=== PATIENT | male | born 1955 | race Caucasian/White ===

== ENCOUNTER 2022-01-29 11:12 | Emergency (ER) | payer OTHER ==
[2022-01-29 12:12] LABS: Absolute Lymphocytes (CBC) 2.3 K/uL (0.7-4.9); Hematocrit 42.2 % (39.6-49.0); Lymphocytes % 30.1 % (15.3-44.8); MPV 6.9 fL (7.6-11.3)
[2022-01-29] MEDS ORDERED: NA CHLORIDE 0.9% 1,000 ML ONE (12:14)
[2022-01-29] MEDS ORDERED: DIAZEPAM 5 MG TABLET ONE (12:14)
[2022-01-29] MEDS ORDERED: dexAMETHasone 10 MG/ML VIAL ONE (12:14)
[2022-01-29] MEDS ORDERED: ONDANSETRON 4 MG/2 ML VIAL ONE (12:14)
[2022-01-29] MEDS ORDERED: MORPHINE 4 MG/ML SYR ONE (12:14)
[2022-01-29] MEDS ORDERED: KETOROLAC 30 MG/ML INJ ONE (12:14)
[2022-01-29] MEDS ORDERED: NA CHLORIDE 0.9% 500 ML ONE (12:14)
--- NOTE | 2022-01-29 12:23 | RAD REPORT ---
EXAM DESCRIPTION: Sandy Single View01/29/2022 12:16 pm CLINICAL HISTORY: cough COMPARISON: none FINDINGS: The lungs appear clear of acute infiltrate. The heart is normal size IMPRESSION: No acute abnormalities displayed
[2022-01-29 12:34] LABS: Albumin 3.1 g/dL (3.4-5.0); Bilirubin Direct 0.1 mg/dL (0-0.2); Bilirubin Total 0.3 mg/dL (0.2-1.0); Magnesium 1.7 mg/dL (1.8-2.4); Potassium 4.4 mmol/L (3.5-5.1); Protein, Total 6.2 g/dL (6.4-8.2)
--- NOTE | 2022-01-29 13:38 | RAD REPORT ---
EXAM DESCRIPTION: CT - Head C Spine Cap Nidia Rashid - 01/29/2022 1:24 pm CLINICAL HISTORY: Trauma, head and neck injury. Chest, abdomen and pelvis pain. trauma COMPARISON: No comparisons TECHNIQUE: CT head without contrast. CT cervical spine without contrast with coronal and sagittal reformatted images. CT chest, abdomen and pelvis with coronal and sagittal reformatted images of the spine. All CT scans are performed using dose optimization technique as appropriate and may include automated exposure control or mA/KV adjustment according to patient size. FINDINGS: CT HEAD WITHOUT CONTRAST: No intracranial hemorrhage, hydrocephalus or extra-axial fluid collection. No acute large vascular te rritory infarct. The paranasal sinuses and mastoids are clear. The calvarium is intact. Multilevel cervical spondylosis with varying degrees of neural foraminal ankit rowing. CT CERVICAL SPINE WITHOUT CONTRAST: No fracture or subluxation. The prevertebral soft tissues are normal in thickness. CT CHEST, ABDOMEN, PELVIS: Thorax: Chest Wall: No abnormal mass Lungs: No acute abnormality. Emphysema. Pleura: No effusions or pneumothorax. Namita/Mediastinum: No lymphadenopathy. Aorta/Pulmonary Arteries: Unremarkable Heart: Normal size. Multi-vessel coronary artery disease. Abdomen/Pelvis: Liver: No acute abnormality or suspicious lesions. Biliary: No biliary ductal dilatation. Stomach: No significant focal abnormality. Duodenum: No significant focal abnormality. Pancreas: No significant abnormality. Spleen: No significant abnormality. Adrenal: 2.2 cm left adrenal nodule. Kidney/ureter: No hydronephrosis. No renal calculi. Left renal scarring. Retroperitoneum: No retroperitoneal adenopathy. Vascular: Infrarenal abdominal aortic aneurysm measuring 3.1 cm. Bowel: No significant focal abnormality. Normal appendix. Peritoneum: No ascites or free air. Ventral hernia repair. Bladder: Grossly unremarkable. Reproductive: No adnexal masses. Bones: No acute fracture. Other: n/a IMPRESSION: 1. No acute intracranial abnormality. 2. No acute fracture traumatic malalignment cervical spine 3. No acute findings within the chest, abdomen, or pelvis. 4. Indeterminate left adrenal nodule. Nonemergent adrenal protocol CT or MRI is recommended for [facility] evaluation 5. Infrarenal abdominal aortic aneurysm measuring 3.1 cm.
[2022-01-29] MEDS ORDERED: MAGNESIUM SULFATE 1 gm IVPB 1 GM/100 ML BAG IV ONE (14:09)
--- NOTE | 2022-01-29 14:26 | EDPHYS ---
Physician Documentation [facility] Name: Jesse Garcia Age: 66 yrs Sex: Male : 1955 Arrival Date: 01/29/2022 Time: 11:14 Bed 15 Private MD: ED Physician Kamran Pagan HPI: 01/29 13:59 This 66 yrs old Male presents to ER via EMS with complaints of Headache, Back hammad Pain. 14:01 The patient complains of pain to the left occipital area, left base of the skull, right hammad occipital area and right base of the skull. The patient describes the headache as a pressure. Onset: The symptoms/episode began/occurred 2 day(s) ago. Associated signs and symptoms: Pertinent positives: malaise, sinus congestion. Severity of symptoms: At its worst the pain was mild, moderate, in the emergency department the pain has improved, mildly. Headache History: The patient has had previous headaches and this one is similar to previous episodes. The patient has experienced similar episodes in the past, several times. Historical: - Allergies: 11:20 No Known Allergies; ww - PMHx: 11:20 Coronary atherosclerosis; Transient cerebral ischemia; Hypertensive disorder; Diabetes ww mellitus; Hypercholesterolemia; HIV positive; - PSHx: 11:20 Cardiac stents; ww - Immunization history:: Adult Immunizations up to date. - Social history:: Smoking status: Patient reports the use of cigarette tobacco products, smokes one pack cigarettes per day. - Family history:: not pertinent. ROS: 14:01 Constitutional: Negative for fever, chills, and weight loss, Eyes: Negative for injury, hammad pain, redness, and discharge, ENT: Negative for injury, pain, and discharge, Neck: Negative for injury, pain, and swelling, Cardiovascular: Negative for chest pain, palpitations, and edema, Respiratory: Negative for shortness of breath, cough, wheezing, and pleuritic chest pain, Abdomen/GI: Negative for abdominal pain, nausea, vomiting, diarrhea, and constipation, : Negative for injury, bleeding, discharge, and swelling, MS/Extremity: Negative for injury and deformity, Skin: Negative for injury, rash, and discoloration, Psych: Negative for depression, anxiety, suicide ideation, homicidal ideation, and hallucinations, Allergy/Immunology: Negative for hives, rash, and allergies, Endocrine: Negative for neck swelling, polydipsia, polyuria, polyphagia, and marked weight changes, Hematologic/Lymphatic: Negative for swollen nodes, abnormal bleeding, and unusual bruising. 14:01 Back: Positive for pain at rest, of the lumbar area, left low back, left mid back, right mid back and right low back. Exam: 13:14 ECG was reviewed by the Attending Physician. hammad 14:01 Constitutional: This is a well developed, well nourished patient who is awake, alert, hammad and in no acute distress. Head/Face: Normocephalic, atraumatic. Eyes: Pupils equal round and reactive to light, extra-ocular motions intact. Lids and lashes normal. Conjunctiva and sclera are non-icteric and not injected. Cornea within normal limits. Periorbital areas with no swelling, redness, or edema. ENT: Nares patent. No nasal discharge, no septal abnormalities noted. Tympanic membranes are normal and external auditory canals are clear. Oropharynx with no redness, swelling, or masses, exudates, or evidence of obstruction, uvula midline. Mucous membranes moist. Neck: Trachea midline, no thyromegaly or masses palpated, and no cervical lymphadenopathy. Supple, full range of motion without nuchal rigidity, or vertebral point tenderness. No Meningismus. Chest/axilla: Normal chest wall appearance and motion. Nontender with no deformity. No lesions are appreciated. Cardiovascular: Regular rate and rhythm with a normal S1 and S2. No gallops, murmurs, or rubs. Normal PMI, no JVD. No pulse deficits. Respiratory: Lungs have equal breath sounds bilaterally, clear to auscultation and percussion. No rales, rhonchi or wheezes noted. No increased work of breathing, no retractions or nasal flaring. Abdomen/GI: Soft, non-tender, with normal bowel sounds. No distension or tympany. No guarding or rebound. No evidence of tenderness throughout. Back: No spinal tenderness. No costovertebral tenderness. Full range of motion. Male : Normal genitalia with no discharge or lesions. Skin: Warm, dry with normal turgor. Normal color with no rashes, no lesions, and no evidence of cellulitis. MS/ Extremity: Pulses equal, no cyanosis. Neurovascular intact. Full, normal range of motion. Neuro: Awake and alert, GCS 15, oriented to person, place, time, and situation. Cranial nerves II-XII grossly intact. Motor strength 5/5 in all extremities. Sensory grossly intact. Cerebellar exam normal. Normal gait. Psych: Awake, alert, with orientation to person, place and time. Behavior, mood, and affect are within normal limits. 14:01 Neck: ROM/movement: is normal, no acute changes, limited range of motion, is not appreciated, Meningeal signs: are not present, Kernig's sign is negative, Brudzinski's sign is negative, nuchal rigidity, is not appreciated. Vital Signs: 11:17 BP 144 / 91; Pulse 60; Resp 14; Temp 97.6; Pulse Ox 98% ; Weight 82.55 kg; Height 5 ft. ww 11 in. (180.34 cm); Pain 10/10; 12:30 BP 115 / 76; Pulse 58; Resp 18; Pulse Ox 95% ; ww 13:00 BP 123 / 74; Pulse 59; Resp 18; Pulse Ox 96% ; ww 14:30 BP 128 / 80; Pulse 55; Resp 18; Pulse Ox 96% ; ww 15:26 BP 118 / 80; Pulse 51; Resp 19; Pulse Ox 96% on R/A; ww 11:17 Body Mass Index 25.38 (82.55 kg, 180.34 cm) ww [place] Coma Score: 14:04 Eye Response: spontaneous(4). Verbal Response: oriented(5). Motor Response: obeys hammad commands(6). Total: 15. MDM: 11:14 Patient medically screened. hammad 14:04 Differential diagnosis: cluster headache, hypertensive headache, migraine, sinusitis, hammad temporal arteritis, tension headache, trigeminal neuralgia, uremia, vasomotor headache. Data reviewed: vital signs, nurses notes, lab test result(s), EKG, radiologic studies, CT scan, plain films. Data interpreted: hall monitor: rate is 60 beats/min. Test interpretation: by ED physician or midlevel provider: ECG, plain radiologic studies. Counseling: I had a detailed discussion with the patient and/or guardian regarding: the historical points, exam findings, and any diagnostic results supporting the discharge/admit diagnosis, the presence of at least one elevated blood pressure reading (>120/80) during this emergency department visit, lab results, radiology results, the need for outpatient follow up, for definitive care, a family practitioner, a neurosurgeon. 01/29 11:56 Order name: Basic Metabolic Panel; Complete Time: 13:58 [facility] 01/29 11:56 Order name: CBC with Diff; Complete Time: 13:58 [facility] 01/29 11:56 Order name: LFT's; Complete Time: 13:58 [facility] 01/29 11:56 Order name: Magnesium; Complete Time: 13:58 [facility] 01/29 11:56 Order name: NT PRO-BNP; Complete Time: 13:58 [facility] 01/29 11:56 Order name: PT-INR; Complete Time: 13:58 [facility] 01/29 11:56 Order name: Troponin HS; Complete Time: 13:58 [facility] 01/29 11:56 Order name: XRAY Chest (1 view); Complete Time: 13:58 [facility] 01/29 11:56 Order name: CT Traumagram (Head C Spine CAP W Con); Complete Time: 13:58 [facility] 01/29 11:56 Order name: EKG; Complete Time: 11:57 [facility] 01/29 11:56 Order name: Cardiac monitoring; Complete Time: 11:56 [facility] 01/29 11:56 Order name: EKG - Nurse/Tech; Complete Time: 12:20 [facility] 01/29 11:56 Order name: IV Saline Lock; Complete Time: 11:56 [facility] 01/29 11:56 Order name: Labs collected and sent; Complete Time: 11:56 [facility] 01/29 11:56 Order name: O2 Per Protocol; Complete Time: 11:57 [facility] 01/29 11:56 Order name: O2 Sat Monitoring; Complete Time: 11:57 [facility] EC:14 Rate is 52 beats/min. Rhythm is regular. QRS [place] is Normal. MO interval is normal. QRS hammad interval is normal. QT interval is normal. No Q waves. T waves are Normal. No ST changes noted. Clinical impression: Sinus bradycardia and No evidence of ischemia. Interpreted by me. Reviewed by me. Administered Medications: 12:05 Drug: NS 0.9% 500 ml Route: IV; Rate: bolus; Site: right antecubital; ww 12:05 Drug: TORadol (ketorolac) 30 mg Route: IVP; Site: right antecubital; ww 12:10 Drug: Valium (diazepam) 5 mg Route: PO; ww 12:10 Drug: Decadron - Dexamethasone 10 mg Route: IVP; Site: right antecubital; ww 12:10 Drug: morphine 4 mg Route: IVP; Infused Over: 4 mins; Site: right antecubital; ww 12:15 Drug: Zofran (Ondansetron) 4 mg Route: IVP; Site: right antecubital; ww 12:50 Drug: NS 0.9% 1000 ml Route: IV; Rate: 125 ml/hr; Site: right antecubital; ww 14:06 Drug: Magnesium Sulfate 1 grams Route: IVPB; Infused Over: 1 hrs; Site: right ww antecubital; Disposition Summary: 01/29/22 14:25 Discharge Ordered Location: Home hammad Problem: new hammad Symptoms: have improved hammad Condition: Stable hammad Diagnosis - Headache hammad - Episodic tension-type headache hammad - Low back pain hammad - Essential (primary) hypertension hammad - Abdominal aortic aneurysm, without rupture - 3.1 cm infrarenal hammad Followup: hammad - With: Private Physician - When: 2 - 3 days - Reason: Recheck today's complaints, Re-evaluation by your physician Followup: hammad - With: - When: 2 - 3 days - Reason: Recheck today's complaints, Re-evaluation by your physician Discharge Instructions: - Discharge Summary Sheet hammad - Abdominal Aortic Aneurysm hammad - Acute Back Pain, Adult hammad - Chronic Back Pain hammad - Hypertension, Adult hammad - Musculoskeletal Pain hammad - Back Injury Prevention, [id number] hammad - Hypertension, Adult, Algl-bw-Oicm hammad - Chronic Back Pain, Kdbg-ta-[id number] hammad - How to Take Your Blood Pressure, Ozop-aj-Xkvj hammad - Managing Your Hypertension hammad Forms: - Medication Reconciliation Form hammad - Thank You Letter hammad - Antibiotic Education hammad - Prescription Opioid Use hammad - Work release form Prescriptions: - Ibuprofen 600 mg Oral Tablet - take 1 tablet by ORAL route every 6 hours As needed take with food; 30 tablet; hammad Refills: 0, Product Selection Permitted - Zofran 4 mg Oral Tablet - take 1 tablet by ORAL route every 12 hours As needed; 20 tablet; Refills: 0, hammad Product Selection Permitted - Medrol (Jamaal) 4 mg Oral Tablets, Dose Pack - take 1 tablet by ORAL route as directed - follow package instructions; 1 hammad packet; Refills: 0, Product Selection Permitted - Cyclobenzaprine 5 mg Oral Tablet - take 1 tablet by ORAL route 3 times per day As needed; 15 tablet; Refills: 0, hammad Product Selection Permitted Signatures: Dispatcher [employer] Kamran Farrar MD MD cha Wood, Whitney, RN RN ww
--- NOTE | 2022-01-29 14:26 | ER ---
Nurse's Notes [facility] Name: Jesse Garcia Age: 66 yrs Sex: Male : 1955 Arrival Date: 01/29/2022 Time: 11:14 Bed 15 Private MD: Diagnosis: Headache;Episodic tension-type headache;Low back pain;Essential (primary) hypertension;Abdominal aortic aneurysm, without rupture-3.1 cm infrarenal Presentation: 01/29 11:17 Chief complaint: Patient states: [facility] for a [facility] and back pain that ww started a few days ago and not getting better. The [facility] called [facility] for further evaluation and to rule out a CVA. Patient states his back pain is in the lumbar region and extends about a foot up and 9 inches out. Headache starts everyday at 9:00. Received 50mcg of Fentanyl. Coronavirus screen: Vaccine status: Patient reports receiving the 2nd dose of the covid vaccine. Client denies travel out of the [place] in the last 14 days. Ebola Screen: Patient denies travel to an Ebola-affected area in the 21 days before illness onset. Initial Sepsis Screen: Does the patient meet any 2 criteria? No. Patient's initial sepsis screen is negative. Does the patient have a suspected source of infection? No. Patient's initial sepsis screen is negative. Risk Assessment: Do you want to hurt yourself or someone else? Patient reports no desire to harm self or others. Onset of symptoms is unknown. 11:17 Method Of Arrival: EMS: [facility] ww 11:17 Acuity: CAROLYN 3 ww Triage Assessment: 11:20 General: Appears uncomfortable, Behavior is calm, cooperative. Pain: Complains of pain ww in face, scalp and back. EENT: Reports blurred vision in iris of left eye. Neuro: Level of Consciousness is awake, alert, obeys commands, Oriented to person, place, time, situation, Moves all extremities. Speech is normal. Cardiovascular: Capillary refill < 3 seconds Patient's skin is warm and dry. Rhythm is regular. Respiratory: Airway is patent Respiratory effort is even, unlabored, Respiratory pattern is regular, symmetrical. GI: No signs and/or symptoms were reported involving the gastrointestinal system. Abdomen is round non-distended. Derm: No signs and/or symptoms reported regarding the dermatologic system. Skin is intact. Musculoskeletal: Reports pain in back. Historical: - Allergies: 11:20 No Known Allergies; ww - PMHx: 11:20 Coronary atherosclerosis; Transient cerebral ischemia; Hypertensive disorder; Diabetes ww mellitus; Hypercholesterolemia; HIV positive; - PSHx: 11:20 Cardiac stents; ww - Immunization history:: Adult Immunizations up to date. - Social history:: Smoking status: Patient reports the use of cigarette tobacco products, smokes one pack cigarettes per day. - Family history:: not pertinent. Screenin:23 Abuse screen: Denies threats or abuse. Denies injuries from another. Nutritional ww screening: No deficits noted. Tuberculosis screening: No symptoms or risk factors identified. Fall Risk None identified. Assessment: 11:23 Reassessment: Patient appears in no apparent distress at this time. No changes from ww previously documented assessment. Patient and/or family updated on plan of care and expected duration. Pain level reassessed. Patient is alert, oriented x 3, equal unlabored respirations, skin warm/dry/pink. see triage assessment. 12:35 Reassessment: Patient appears in no apparent distress at this time. No changes from ww previously documented assessment. Patient and/or family updated on plan of care and expected duration. Pain level reassessed. Patient is alert, oriented x 3, equal unlabored respirations, skin warm/dry/pink. Patient states feeling better. 13:59 Reassessment: Patient appears in no apparent distress at this time. No changes from ww previously documented assessment. Patient and/or family updated on plan of care and expected duration. Pain level reassessed. Patient is alert, oriented x 3, equal unlabored respirations, skin warm/dry/pink. 14:30 Reassessment: Patient appears in no apparent distress at this time. No changes from ww previously documented assessment. Patient and/or family updated on plan of care and expected duration. Pain level reassessed. Patient is alert, oriented x 3, equal unlabored respirations, skin warm/dry/pink. Vital Signs: 11:17 BP 144 / 91; Pulse 60; Resp 14; Temp 97.6; Pulse Ox 98% ; Weight 82.55 kg; Height 5 ft. ww 11 in. (180.34 cm); Pain 10/10; 12:30 BP 115 / 76; Pulse 58; Resp 18; Pulse Ox 95% ; ww 13:00 BP 123 / 74; Pulse 59; Resp 18; Pulse Ox 96% ; ww 14:30 BP 128 / 80; Pulse 55; Resp 18; Pulse Ox 96% ; ww 15:26 BP 118 / 80; Pulse 51; Resp 19; Pulse Ox 96% on R/A; ww 11:17 Body Mass Index 25.38 (82.55 kg, 180.34 cm) ww [place] Coma Score: 14:04 Eye Response: spontaneous(4). Verbal Response: oriented(5). Motor Response: obeys hammad commands(6). Total: 15. ED Course: 11:14 Patient arrived in ED. hammad 11:14 Kamran Pagan MD is Attending Physician. hammad 11:20 Triage completed. ww 11:20 Arm band placed on. ww 11:23 Patient has correct armband on for positive identification. Bed in low position. Call ww light in reach. Side rails up X2. Client placed on continuous cardiac and pulse oximetry monitoring. NIBP monitoring applied. 11:23 Maintain EMS IV. Dressing intact. Good blood return noted. Site clean \T\ dry. Gauge \T\ ww site: 20g right forearm. 11:24 Steph Fernandez, RN is Primary Nurse. ww 12:18 XRAY Chest (1 view) In Process Unspecified. EDMS 13:25 CT Traumagram (Head C Spine CAP W Con) In Process Unspecified. EDMS 14:25 Lionel Gu MD is Referral Physician. hammad 15:28 No provider procedures requiring assistance completed. IV discontinued, intact, ww bleeding controlled, No redness/swelling at site. Pressure dressing applied. Administered Medications: 12:05 Drug: NS 0.9% 500 ml Route: IV; Rate: bolus; Site: right antecubital; ww 12:05 Drug: TORadol (ketorolac) 30 mg Route: IVP; Site: right antecubital; ww 12:10 Drug: Valium (diazepam) 5 mg Route: PO; ww 12:10 Drug: Decadron - Dexamethasone 10 mg Route: IVP; Site: right antecubital; ww 12:10 Drug: morphine 4 mg Route: IVP; Infused Over: 4 mins; Site: right antecubital; ww 12:15 Drug: Zofran (Ondansetron) 4 mg Route: IVP; Site: right antecubital; ww 12:50 Drug: NS 0.9% 1000 ml Route: IV; Rate: 125 ml/hr; Site: right antecubital; ww 14:06 Drug: Magnesium Sulfate 1 grams Route: IVPB; Infused Over: 1 hrs; Site: right ww antecubital; Medication: 15:28 VIS not applicable for this client. ww Outcome: 14:25 Discharge ordered by MD. cueva 15:28 Discharged to home ambulatory. ww 15:28 Condition: stable 15:28 Discharge instructions given to patient, Instructed on discharge instructions, follow up and referral plans. medication usage, safety practices, Demonstrated understanding of instructions, follow-up care, medications, Prescriptions given X 4. 15:28 Patient left the ED. ww Signatures: Dispatcher [employer] Kamran Farrar MD MD cha Wood, Whitney, RN RN ww
[2022-01-29 16:05] VITALS: TEMP 97.6
[2022-01-29 16:08] VITALS: O2SAT 96
[2022-01-29 16:11] VITALS: BP 118/80
--- NOTE | 2022-01-30 07:20 | EKG ---
Test Date: 2022-01-29 Test Time: 12:13:06 Holistic Nutritionist: [facility] MEASUREMENT RESULTS: Intervals: Rate: 52 [place]: 190 QRSD: 108 QT: 434 QTc: 403 [place]: P: 74 [place]: 190 QRS: -82 T: 63 INTERPRETIVE STATEMENTS: Sinus bradycardia Left anterior fascicular block Abnormal ECG No previous ECG available for comparison Electronically Signed On 01-30-22 07:17:36 CDT by Bryant Pollard
== END 2022-01-29 15:28 | disposition home or self-care (01) ==
LOC: ER 11:12
DX: G44.219 Episodic tension-type headache, not intractable (principal); I10 Essential (primary) hypertension; I71.4 Abdominal aortic aneurysm, without rupture; M54.50 Low back pain, unspecified; E11.9 Type 2 diabetes mellitus without complications; F17.210 Nicotine dependence, cigarettes, uncomplicated; Z21 Asymptomatic human immunodeficiency virus [HIV] infection status; Z95.818 Presence of other cardiac implants and grafts
CPT/HCPCS: 93005; 85025; 80048; 36415; 83735; 85610; 80076; 84484; 83880; 70450; 72125; 71260; 74177; 71045; Q9967; J3475; J1100; J7040; J7030; J2405

== ENCOUNTER 2024-08-13 11:47 | Emergency (ER) | payer OTHER ==
[2024-08-13] MEDS ORDERED: ONDANSETRON 4 MG/2 ML VIAL ONE (12:23)
[2024-08-13 12:24] LABS: Absolute Basophils 0.1 K/uL (0-0.5); Absolute Eosinophils 0.2 K/uL (0-0.5); Absolute Lymphocytes (CBC) 2.2 K/uL (0.7-4.9); Absolute Monocytes 1.1 K/uL (0.1-1.3); Absolute Neutrophil 3.8 K/uL (1.8-8.0); Basophils % 0.8 % (0-1.3); Eosinophils % 3.1 % (0-4.4); Hematocrit 45.7 % (39.6-49.0); Hemoglobin 15.5 g/dL (13.6-17.9); Lymphocytes % 29.8 % (15.3-44.8); MCH 31.4 pg (27.0-35.0); MCHC 33.9 g/dL (32.0-36.0); MCV 92.6 fL (80-100); MPV 7.6 fL (7.6-11.3); Monocytes % 14.6 % (3.3-12.3); Neutrophils % 51.7 % (41.7-73.7); Nucleated Red Blood Cells % 0.1 % (0-0); Platelets 351 thou/uL (152-406); RBC Red Blood Cell Count 4.93 M/uL (4.33-5.43); Red Cell Distribution Width 14.9 % (12.1-15.2)
[2024-08-13] MEDS ORDERED: MORPHINE 4 MG/ML SYR ONE ×2 (12:24→14:48)
[2024-08-13] MEDS ORDERED: ASPIRIN 81 MG CHEWABLE TABLET ONE (12:24)
[2024-08-13] MEDS ORDERED: ENOXAPARIN 80 MG/0.8 ML SQ ONE (12:24)
[2024-08-13] MEDS ORDERED: FAMOTIDINE 20 MG/2 ML VIAL IV ONE (12:24)
[2024-08-13 12:32] LABS: PT Prothrombin Time 11.2 SECONDS (9.4-12.5)
--- NOTE | 2024-08-13 12:44 | EDPHYS ---
Physician Documentation [facility] Name: Jesse Garcia Age: 69 yrs Sex: Male : 1955 Arrival Date: 08/13/2024 Time: 11:47 Bed 18 Private MD: ED Physician Kamran Pagan HPI: 08/13 12:38 This 69 yrs old Male presents to ER via Wheelchair with complaints of Chest hammad Pain. 12:38 The patient or guardian reports chest pain that is located primarily in the substernal hammad area, anterior chest wall. Onset: just prior to arrival, this morning. The pain does not radiate. Associated signs and symptoms: Pertinent positives: shortness of breath. The chest pain is described as a heaviness, a pressure. Duration: The patient or guardian reports a single episode, that is still ongoing. Modifying factors: The symptoms are alleviated by nothing. the symptoms are aggravated by nothing. Severity of pain: At its worst the pain was moderate in the emergency department the pain has improved moderately. The patient has not experienced similar symptoms in the past. Historical: - Allergies: 12:05 No Known Allergies; ld1 - PMHx: 11:51 coronary atherosclerosis; diabetes mellitus; HIV positive; Hypercholesterolemia; iw Hypertensive disorder; Transient cerebral ischemia; - PSHx: 11:51 cardiac stents; iw - Immunization history:: Adult Immunizations up to date. - Infectious Disease History:: Denies. - Social history:: Smoking status: Patient denies any tobacco usage or history of. - Family history:: not pertinent. ROS: 12:39 Constitutional: Negative for fever, chills, and weight loss, Eyes: Negative for injury, hammad pain, redness, and discharge, ENT: Negative for injury, pain, and discharge, Neck: Negative for injury, pain, and swelling, Respiratory: Negative for shortness of breath, cough, wheezing, and pleuritic chest pain, Abdomen/GI: Negative for abdominal pain, nausea, vomiting, diarrhea, and constipation, Back: Negative for injury and pain, : Negative for injury, bleeding, discharge, and swelling, MS/Extremity: Negative for injury and deformity, Skin: Negative for injury, rash, and discoloration, Neuro: Negative for headache, weakness, numbness, tingling, and seizure, Psych: Negative for depression, anxiety, suicide ideation, homicidal ideation, and hallucinations, Allergy/Immunology: Negative for hives, rash, and allergies, Endocrine: Negative for neck swelling, polydipsia, polyuria, polyphagia, and marked weight changes, Hematologic/Lymphatic: Negative for swollen nodes, abnormal bleeding, and unusual bruising, 12:39 Cardiovascular: Positive for chest pain, of the chest, 12:39 MS/extremity: Negative for acute changes, Exam: 12:39 Constitutional: This is a well developed, well nourished patient who is awake, alert, hammad and in no acute distress. Head/Face: Normocephalic, atraumatic. Eyes: Pupils equal round and reactive to light, extra-ocular motions intact. Lids and lashes normal. Conjunctiva and sclera are non-icteric and not injected. Cornea within normal limits. Periorbital areas with no swelling, redness, or edema. ENT: Nares patent. No nasal discharge, no septal abnormalities noted. Tympanic membranes are normal and external auditory canals are clear. Oropharynx with no redness, swelling, or masses, exudates, or evidence of obstruction, uvula midline. Mucous membranes moist. Neck: Trachea midline, no thyromegaly or masses palpated, and no cervical lymphadenopathy. Supple, full range of motion without nuchal rigidity, or vertebral point tenderness. No Meningismus. Chest/axilla: Normal chest wall appearance and motion. Nontender with no deformity. No lesions are appreciated. Cardiovascular: Regular rate and rhythm with a normal S1 and S2. No gallops, murmurs, or rubs. Normal PMI, no JVD. No pulse deficits. Respiratory: Lungs have equal breath sounds bilaterally, clear to auscultation and percussion. No rales, rhonchi or wheezes noted. No increased work of breathing, no retractions or nasal flaring. Abdomen/GI: Soft, non-tender, with normal bowel sounds. No distension or tympany. No guarding or rebound. No evidence of tenderness throughout. Back: No spinal tenderness. No costovertebral tenderness. Full range of motion. Skin: Warm, dry with normal turgor. Normal color with no rashes, no lesions, and no evidence of cellulitis. MS/ Extremity: Pulses equal, no cyanosis. Neurovascular intact. Full, normal range of motion., bilateral aka Neuro: Awake and alert, GCS 15, oriented to person, place, time, and situation. Cranial nerves II-XII grossly intact. Motor strength 5/5 in all extremities. Sensory grossly intact. Cerebellar exam normal. Normal gait. Psych: Awake, alert, with orientation to person, place and time. Behavior, mood, and affect are within normal limits. 12:39 ECG was reviewed by the Attending Physician. 12:39 Musculoskeletal/extremity: DVT Exam: No signs of deep vein thrombosis. no pain, no swelling, no tenderness, negative Homans' sign noted on exam, no appreciated bluish discoloration, no erythema, no increased warmth, Calves: are non-tender, have equal circumference, Vital Signs: 11:50 BP 154 / 90; Pulse 70; Resp 19; Pulse Ox 100% on R/A; iw 12:20 Weight 73.94 kg; me1 12:30 BP 136 / 84; Pulse 68; Resp 17; Pulse Ox 100% on R/A; me1 13:00 BP 122 / 74; Pulse 74; Resp 15; Pulse Ox 99% on R/A; me1 14:00 BP 128 / 68; Pulse 70; Resp 15; Pulse Ox 98% on R/A; me1 14:24 Pain 3/10; me1 15:00 BP 131 / 64; Pulse 72; Resp 15; Pulse Ox 99% ; me1 15:45 BP 128 / 72; Pulse 64; Resp 14; Temp 98.6; Pulse Ox 98% ; me1 14:24 Pain Scale: Adult me1 MDM: 11:50 Medical Screening Exam initiated hammad 12:41 Differential diagnosis: abnormal EKG, acute myocardial infarction, acute pericarditis, hammad anxiety, coronary artery disease chest wall pain, Cholelithiasis costochondritis, esophagitis, gastritis, gastroesophageal reflux disease (GERD), hiatal hernia, pancreatitis, pericarditis, pleurisy, pneumonia, pulmonary embolus, stable angina, thoracic aortic disection, unstable angina. HEART Score: History: Moderately Suspicious (1), ECG: Non specific repolarization disturbance / LBTB / PM (1), Age: > or = 65 years (2), Risk Factors: > or = 3 Risk factors for atherosclerotic disease (2), [Hypercholesterolemia] [Hypertension] [DM] [Active Smoker] [+ Family HX] Troponin: < or = 1 x Normal Limit (0). The patient was given aspirin in the Emergency Department. JUAN CARLOS Risk Score: 1 - patient's age is greater or equal to 65 years, 1 - Three or more CAD risk factors, 1- Known CAD, 1 - ASA use in past 7 days, 1 - Recent [<24hrs] Severe Angina, TOTAL SCORE = 5. Data reviewed: vital signs, nurses notes. Consideration of Admission/Observation Patient was admitted/placed on observation. Escalation of care including admission/observation considered. I considered the following discharge prescriptions or medication management in the emergency department Medications were administered in the Emergency Department. See MAR. Independent interpretation of the following test(s) in the Emergency Department EKG: See my EKG interpretation above. Test considered but Not performed: Ultrasound no 2 d echo. Historians other than the Patient: Daughter/Son: kyle hooper informred. Care significantly affected by the following chronic conditions: Diabetes, Hypertension, high chlesterol , hiv, tobacco. 08/13 11:51 Order name: Basic Metabolic Panel; Complete Time: 13:05 08/13 11:51 Order name: CBC with Diff; Complete Time: 13:05 08/13 11:51 Order name: LFT's; Complete Time: 13:05 08/13 11:51 Order name: Magnesium; Complete Time: 13:05 08/13 11:51 Order name: NT PRO-BNP; Complete Time: 13:05 08/13 11:51 Order name: PT-INR; Complete Time: 13:05 08/13 11:51 Order name: Troponin HS; Complete Time: 13:05 08/13 11:51 Order name: Lipase; Complete Time: 13:05 08/13 11:51 Order name: Urinalysis w/ reflexes; Complete Time: 14:10 08/13 11:51 Order name: XRAY Chest (1 view); Complete Time: 14:10 08/13 11:51 Order name: Cardiac monitoring; Complete Time: 12:05 08/13 11:51 Order name: EKG - Nurse/Tech; Complete Time: 12:05 08/13 11:51 Order name: IV Saline Lock; Complete Time: 12:34 08/13 11:51 Order name: Labs collected and sent; Complete Time: 12:34 08/13 11:51 Order name: O2 Per Protocol; Complete Time: 12:05 hammad 08/13 11:51 Order name: O2 Sat Monitoring; Complete Time: 12:05 hammad EC:39 Rate is 76 beats/min. Rhythm is regular. QRS [place] is Normal. MS interval is normal. QRS hammad interval is normal. QT interval is normal. No Q waves. T waves are Normal. No ST changes noted. Clinical impression: NSR w/ Non-specific ST/T Changes and No evidence of ischemia. Interpreted by me. Reviewed by me. Administered Medications: 12:33 Drug: Aspirin PO Chewable Tablet 162 mg PO once Route: PO; me1 14:24 Follow up: Response: No adverse reaction me1 12:33 Drug: morphine IVP or IV 4 mg IVP once over 4 mins Route: IVP; Infused Over: 4 mins; me1 Site: right antecubital; 14:24 Follow up: Pain 3/10 Adult; Response: No adverse reaction; Pain is decreased me1 12:33 Drug: Ondansetron IVP 4 mg IVP once; over 2 minutes Route: IVP; Site: right antecubital;me1 14:24 Follow up: Response: No adverse reaction; Nausea is decreased me1 12:33 Drug: Famotidine IVP 20 mg IVP once; dilute with 10 mL 0.9% NaCl; give over 2 minutes me1 Route: IVP; Site: right antecubital; 14:24 Follow up: Response: No adverse reaction me1 12:33 Drug: Enoxaparin Sub-Q 1 mg/kg Sub-Q once Route: Sub-Q; Site: abdomen; me1 14:24 Follow up: Response: No adverse reaction me1 14:50 Drug: morphine IVP or IV 4 mg IVP once over 4 mins Route: IVP; Infused Over: 4 mins; me1 Site: right antecubital; 15:03 Follow up: Response: No adverse reaction; Pain is decreased me1 Disposition Summary: 08/13/24 12:44 Transfer Ordered Notes: Transfer Location: [facility] hammad Reason: Higher level of care hammad Condition: Fair hammad Problem: new hammad Symptoms: have improved hammad Accepting Physician: to ne(08/13/24 16:04) db Diagnosis - Chest pain, unspecified hammad - Unstable angina hammad - Essential (primary) hypertension hammad - Tobacco abuse counseling hammad - Tobacco use hammad Forms: - Medication Reconciliation Form hammad - SBAR form [facility] Signatures: Dispatcher [employer] EDMS Kamran Pagan MD MD cha Williams, Irene, RN Anni Jennings RN RN ld1 Allison Shabazz, RN RN db Veronica Dyson, RN RN me1 Corrections: (The following items were deleted from the chart) 11: 11:52 BASIC METABOLIC PANEL+C.LAB.BRZ ordered. EDMS EDMS 11: 11:52 CBC+H.LAB.BRZ ordered. EDMS EDMS 11:52 11:52 HEPATIC FUNCTION+C.LAB.BRZ ordered. EDMS EDMS 11: 11:52 MAGNESIUM+C.LAB.BRZ ordered. EDMS EDMS 11: 11:52 PROBNP+C.LAB.BRZ ordered. EDMS EDMS 11: 11:52 PROTIME (+INR)+COAG.LAB.BRZ ordered. EDMS EDMS 11: 11:52 Troponin High Sensitivity+C.LAB.BRZ ordered. EDMS EDMS 11: 11:52 LIPASE+C.LAB.BRZ ordered. EDMS EDMS 11:52 11:52 Urinalysis+U.LAB.BRZ ordered. EDMS EDMS 11:52 11:52 Chest Single View+RAD.RAD.BRZ ordered. EDMS EDMS 16:04 12:44 to ne hammad ybarra
--- NOTE | 2024-08-13 12:44 | ER ---
Nurse's Notes [facility] Name: Jesse Garcia Age: 69 yrs Sex: Male : 1955 Arrival Date: 08/13/2024 Time: 11:47 Bed 18 Private MD: Diagnosis: Chest pain, unspecified;Unstable angina;Essential (primary) hypertension;Tobacco abuse counseling;Tobacco use Presentation: 08/13 11:50 Chief complaint: Patient states: chest pain since 4 am. Coronavirus screen: At this iw time, the client does not indicate any symptoms associated with coronavirus-19. Ebola Screen: No symptoms or risks identified at this time. Initial Sepsis Screen: Does the patient meet any 2 criteria? No. Patient's initial sepsis screen is negative. Does the patient have a suspected source of infection? No. Patient's initial sepsis screen is negative. Risk Assessment: Do you want to hurt yourself or someone else? Patient reports no desire to harm self or others. Onset of symptoms was August 13, 2024. 11:50 Method Of Arrival: Wheelchair iw 11:50 Acuity: CAROLYN 2 iw Triage Assessment: 12:04 General: Appears in no apparent distress. uncomfortable, Behavior is cooperative, ld1 appropriate for age, anxious. Pain: Complains of pain in chest Pain does not radiate. Pain currently is 9 out of 10 on a pain scale. Quality of pain is described as heavy, pressure, throbbing, Pain began 4 hours ago. Is intermittent. EENT: No signs and/or symptoms were reported regarding the EENT system. Neuro: Level of Consciousness is awake, alert, obeys commands, Oriented to person, place, time, situation. Cardiovascular: Capillary refill < 3 seconds Patient's skin is warm and dry. Respiratory: Airway is patent Respiratory effort is even, unlabored. GI: Abdomen is round non-distended. : No signs and/or symptoms were reported regarding the genitourinary system. Derm: No signs and/or symptoms reported regarding the dermatologic system. Musculoskeletal: No signs and/or symptoms reported regarding the musculoskeletal system. Historical: - Allergies: 12:05 No Known Allergies; ld1 - PMHx: 11:51 coronary atherosclerosis; diabetes mellitus; HIV positive; Hypercholesterolemia; iw Hypertensive disorder; Transient cerebral ischemia; - PSHx: 11:51 cardiac stents; iw - Immunization history:: Adult Immunizations up to date. - Infectious Disease History:: Denies. - Social history:: Smoking status: Patient denies any tobacco usage or history of. - Family history:: not pertinent. Screenin:05 [facility] [place] ED Fall Risk Assessment (Adult) History of falling in the last 3 months, me1 including since admission No falls in past 3 months (0 pts) Confusion or Disorientation No (0 pts) Intoxicated or Sedated No (0 pts) Impaired Gait No (0 pts) Mobility Assist Device Used No (0 pt) Altered Elimination No (0 pt) Score/Fall Risk Level 0 - 2 = Low Risk Maintained a safe environment, Provided non-skid footwear, Hourly rounding (assess needs \T\ fall precautionary measures) done. Abuse screen: Denies threats or abuse. Nutritional screening: No deficits noted. Tuberculosis screening: No symptoms or risk factors identified. Assessment: 12:05 General: Appears uncomfortable, well developed, well nourished, Behavior is calm, me1 cooperative, appropriate for age, Reports Midsternal chest pain that started at 4 am. 3/10 now, 8/10 at worst. Does not radiate. SOB associated with pain. Pain: Complains of pain in chest Pain does not radiate. Pain currently is 3 out of 10 on a pain scale. at worst was 8 out of 10 on a pain scale. Quality of pain is described as sharp, Pain began suddenly, Is continuous. Neuro: Level of Consciousness is awake, alert, obeys commands, Oriented to person, place, time, situation, Appropriate for age. Cardiovascular: Patient's skin is warm and dry. Respiratory: Airway is patent Respiratory effort is even, unlabored, Respiratory pattern is regular, symmetrical. GI: No signs and/or symptoms were reported involving the gastrointestinal system. : No signs and/or symptoms were reported regarding the genitourinary system. EENT: No signs and/or symptoms were reported regarding the EENT system. Derm: Skin is intact, is healthy with good turgor, Skin is pink, warm \T\ dry. Musculoskeletal: Reports pain in chest. 15:18 Reassessment: Report called to KRISS Garcia at the [place] ER. me1 Vital Signs: 11:50 BP 154 / 90; Pulse 70; Resp 19; Pulse Ox 100% on R/A; iw 12:20 Weight 73.94 kg; me1 12:30 BP 136 / 84; Pulse 68; Resp 17; Pulse Ox 100% on R/A; me1 13:00 BP 122 / 74; Pulse 74; Resp 15; Pulse Ox 99% on R/A; me1 14:00 BP 128 / 68; Pulse 70; Resp 15; Pulse Ox 98% on R/A; me1 14:24 Pain 3/10; me1 15:00 BP 131 / 64; Pulse 72; Resp 15; Pulse Ox 99% ; me1 15:45 BP 128 / 72; Pulse 64; Resp 14; Temp 98.6; Pulse Ox 98% ; me1 14:24 Pain Scale: [place] [facility] Course: 11:48 Patient arrived in ED. ra3 11:50 Kamran Pagan MD is Attending Physician. hammad 11:51 Triage completed. iw 12:04 Arm band placed on right wrist. ld1 12:05 Patient has correct armband on for positive identification. Bed in low position. Call md1 light in reach. Side rails up X2. Provided Education on: POC. Verbalized understanding. Client placed on continuous cardiac and pulse oximetry monitoring. NIBP monitoring applied. site reliability engineer on. Pulse ox on. NIBP on. 12:05 No provider procedures requiring assistance completed. Patient maintains SpO2 md1 saturation greater than 95% on room air. 12:19 Veronica Dyson, RN is Primary Nurse. me1 12:20 Initial lab(s) drawn, by md, sent to lab. Inserted saline lock: 22 gauge in right md1 antecubital area, using aseptic technique. 12:34 Lipase Sent. me1 12:34 Basic Metabolic Panel Sent. me1 12:34 LFT's Sent. me1 12:34 Magnesium Sent. me1 12:34 NT PRO-BNP Sent. me1 12:34 Troponin HS Sent. me1 12:48 initiated a transfer with Darío from the [place] transfer Center. eb 12:51 XRAY Chest (1 view) In Process Unspecified. EDMS 12:56 Urinalysis w/ reflexes Sent. me1 12:56 Urine collected: clean catch specimen, clear. me1 15:45 Patient transferred, IV remains in place. me1 Administered Medications: 12:33 Drug: Aspirin PO Chewable Tablet 162 mg PO once Route: PO; me1 14:24 Follow up: Response: No adverse reaction me1 12:33 Drug: morphine IVP or IV 4 mg IVP once over 4 mins Route: IVP; Infused Over: 4 mins; me1 Site: right antecubital; 14:24 Follow up: Pain 3/10 Adult; Response: No adverse reaction; Pain is decreased me1 12:33 Drug: Ondansetron IVP 4 mg IVP once; over 2 minutes Route: IVP; Site: right antecubital;me1 14:24 Follow up: Response: No adverse reaction; Nausea is decreased me1 12:33 Drug: Famotidine IVP 20 mg IVP once; dilute with 10 mL 0.9% NaCl; give over 2 minutes me1 Route: IVP; Site: right antecubital; 14:24 Follow up: Response: No adverse reaction me1 12:33 Drug: Enoxaparin Sub-Q 1 mg/kg Sub-Q once Route: Sub-Q; Site: abdomen; me1 14:24 Follow up: Response: No adverse reaction me1 14:50 Drug: morphine IVP or IV 4 mg IVP once over 4 mins Route: IVP; Infused Over: 4 mins; me1 Site: right antecubital; 15:03 Follow up: Response: No adverse reaction; Pain is decreased me1 Medication: 12:05 VIS not applicable for this client. me1 Outcome: 12:44 ER care complete, transfer ordered by MD. cueva 15:45 Transferred by ground EMS to [facility] Note: nursing unit coordinator. me1 Report called to KRISS Garcia 15:45 Condition: stable 15:45 Instructed on the need for transfer, 16:04 Patient left the ED. db Signatures: Dispatcher [employer] Kamran Farrar MD MD cha Williams, Irene RN RN iw Faiza Enriquez Lauren RN RN ld1 Allison Shabazz RN RN db Veronica Dyson, KRISS RN me1 Kimmie Sanford ra3 Corrections: (The following items were deleted from the chart) 11:52 11:50 BP 154 / 90; Resp 19bpm; iw iw
[2024-08-13 12:50] LABS: Albumin 3.2 g/dL (3.4-5.0); Albumin/Globulin Ratio 0.8 (1.1-1.8); Anion Gap 7.1 mEq/L (5.0-15.0); Bilirubin Direct 0.2 mg/dL (0-0.2); Bilirubin Indirect, Calculated 0.4 mg/dL (0.2-0.8); Bilirubin Total 0.6 mg/dL (0.2-1.0); Globulin 3.8 g/dL (2.3-3.5); Magnesium 2.2 mg/dL (1.6-2.4); Potassium 4.1 mEq/L (3.5-5.1)
--- NOTE | 2024-08-13 13:09 | RAD REPORT ---
Procedure: Chest Single View HISTORY: Cough COMPARISON: none FINDINGS: The lungs appear clear of acute infiltrate. 2021. lungs are hyperaerated. No significant pleural effusion noted. The heart is normal size. IMPRESSION: No acute abnormality is displayed.
[2024-08-13 13:16] LABS: Specific Gravity 1.024 (1.005-1.030); Sqamous Epithelial None Seen /HPF (None Seen); Urine Bacteria None Seen /HPF (<20); Urine Bilirubin NEGATIVE (Negative); Urine Blood Negative (Negative); Urine Clarity Clear (Clear); Urine Color Light-Yellow (Yellow); Urine Culture Reflex Order NOT NEEDED; Urine Glucose 4+ (Over) (Negative); Urine Ketones NEGATIVE (Negative); Urine Microscopic Reflex YN ORDER UMIC; Urine Nitrite NEGATIVE (Negative); Urine Protein TRACE (Negative); Urine RBC <5 /HPF (None Seen); Urine Urobilinogen Normal (Normal); Urine WBC <5 /HPF (<5)
[2024-08-13 16:13] VITALS: BP 154/90; O2SAT 100
--- NOTE | 2024-08-23 11:22 | EKG ---
Test Date: 2024-08-13 Test Time: 11:52:21 Credit Counselor: Efrain THOMAS MEASUREMENT RESULTS: Intervals: Rate: 76 CT: 196 QRSD: 96 QT: 384 QTc: 432 Purdys: P: 77 CT: 196 QRS: -87 T: 68 INTERPRETIVE STATEMENTS: Normal sinus rhythm Left axis deviation Abnormal ECG Compared to ECG 01/29/2022 12:13:06 Left-axis deviation now present Sinus bradycardia no longer present Left anterior fascicular block no longer present Electronically Signed On 08-23-24 11:07:05 DIRECTOR OF ENTERPRISE STRATEGY by Atul Schwab
== END 2024-08-13 16:04 ==
LOC: ER 11:47
DX: I20.0 Unstable angina (principal); I10 Essential (primary) hypertension; Z71.6 Tobacco abuse counseling; Z72.0 Tobacco use; Z21 Asymptomatic human immunodeficiency virus [HIV] infection status; Z95.818 Presence of other cardiac implants and grafts
CPT/HCPCS: 93005; 85025; 81001; 80048; 36415; 83735; 85610; 80076; 84484; 83690; 83880; 71045; 96375; 96372; 96374; 99285; J2405